=== PATIENT | female | born 1985 | race Caucasian/White ===

== ENCOUNTER 2024-09-09 14:33 | Outpatient (CLI) | payer OTHER ==
[2024-09-09 16:18] VITALS: BP 128/87; PULSE 110; RESP 18; TEMP 98.6; O2SAT 99
[2024-09-09] MEDS: PROPRANOLOL HCL 10 MG TABLET PO SCH (18:11)
[2024-09-09] MEDS: HydrOXYzine HCL 25 MG TABLET PO PRN (18:11)
[2024-09-09 19:47] VITALS: BP 104/70; PULSE 77; RESP 12; TEMP 98.2; O2SAT 98
[2024-09-09] MEDS: TraZODone HCL 50 MG TABLET PO SCH (21:20)
[2024-09-10 07:32] VITALS: BP 112/75; PULSE 90; RESP 18; TEMP 98.2; O2SAT 98
[2024-09-10] MEDS: ESCITALOPRAM OXALATE 10 MG TABLET PO SCH (07:34)
== END 2024-09-10 10:10 | disposition home or self-care (01) ==
LOC: CSU 14:33 → EDSTATUS 11-03 16:31
PROVIDERS: ATTEND Nurse Practitioner Psychiatric/Mental Health
DX: F32.A Depression, unspecified (principal); F41.9 Anxiety disorder, unspecified; R45.851 Suicidal ideations
CPT/HCPCS: 90839; 90840; Z7610